=== PATIENT | female | born 2000 | race Asian ===

== ENCOUNTER → 2021-02-05 10:45 | Outpatient (CLI) | payer MEDICAID, SELFPAY ==
--- NOTE | 2021-02-05 | DI.US.S_ITS ---
PROCEDURE: US PELVIC COMPLETE INDICATIONS: BACK PAIN; HISTORY RIGHT OVARIAN CANCER AT 13YO TECHNIQUE: Real-time scanning was performed of the pelvic organs, with image documentation. Additional endovaginal scanning was necessary due to incomplete visualization of the adnexal and endometrial structures by transabdominal scanning. COMPARISON: [facility], CR, XR LUMBAR SPINE 2-3V, 02/05/2021, 11:16. FINDINGS: Uterus: Uterus is normal in size at 7 x 3.2 x 4.9 cm. The endometrium measures 4 mm in combined thickness. An IUD is seen at its expected location. Ovaries: The right ovary is surgically absent. The left ovary measures 2.7 x 1.4 x 2.2 cm. Physiologic appearing follicles can be seen involving the left ovary. No adnexal masses are seen on either side. Other: No pathologic free abdominal or pelvic fluid. IMPRESSION: Status post right oophorectomy. Physiologic appearing follicles can be seen involving the left ovary. The IUD is seen at its expected location. Dictated by: Jeffrey Carvalho M.D. on 02/05/2021 at 13:27 Approved by: Jeffrey Carvalho M.D. on 02/05/2021 at 13:29
--- NOTE | 2021-02-05 11:18 | DI.RAD.S_ITS ---
PROCEDURE: XR LUMBAR SPINE 2-3V INDICATIONS: BACK PAIN TECHNIQUE: 3 views of the lumbar spine were acquired. COMPARISON: None. FINDINGS: Bones: 5 [id number] vertebrae are present. There is normal bony alignment. No vertebral body compression fractures. No suspicious bony lesions. Soft tissues: Overlying bowel gas pattern is normal. No suspicious soft tissue calcifications. Intrauterine device projected over the mid pelvis. IMPRESSION: Normal L-spine. Dictated by: John Gonsalez RR Interpreted: Shailesh Otero MD on 02/05/2021 at 14:08 Transcribed by: INDIGO on 02/05/2021 at 14:11 Approved by: Shailesh Otero M.D. on 02/05/2021 at 15:38
== END ==
PROVIDERS: PCP Family Medicine; Referring Provider Family Medicine; Visit Provider Family Medicine
DX: Z85.43 Personal history of malignant neoplasm of ovary (principal); M54.9 Dorsalgia, unspecified; Z90.721 Acquired absence of ovaries, unilateral; Z97.5 Presence of (intrauterine) contraceptive device
CPT/HCPCS: 72100; 76830; 76856

== ENCOUNTER → 2023-12-31 06:47 | Outpatient (CLI) | payer OTHER, SELFPAY ==
--- NOTE | 2023-12-31 06:50 | DI.US.S_ITS ---
PROCEDURE: US PELVIC COMPLETE INDICATIONS: Abnormal uterine and vaginal bleeding TECHNIQUE: Real-time scanning was performed of the pelvic organs, with image documentation. Additional endovaginal scanning was necessary due to incomplete visualization of the adnexal and endometrial structures by transabdominal scanning. COMPARISON: [facility], , US PELVIC COMPLETE, 02/05/2021, 11:04. FINDINGS: Uterus: Uterus is retroverted and normal in size at 8.2 x 5.5 x 3.7 cm. The myometrium is homogeneous. The endometrium measures 4 mm combined thickness. IUD within the central uterus. Ovaries: Right oophorectomy. Left ovary measures 2.9 x 2.7 x 2.0 cm, volume of 8 mL. Avascular follicle with lacy internal contents measuring 1.8 x 1.9 x 1.3 cm. Other: No pathologic free abdominal or pelvic fluid. IMPRESSION: Right oophorectomy. Normal endometrial thickness for age. Avascular follicle with lacy internal contents measuring 1.8 x 1.9 x 1.3 cm. Findings probably represent a hemorrhagic follicle. Recommend follow-up in 6-12 weeks given history. IUD appears appropriately positioned. We strive to produce accurate, complete, and clear reports of imaging services. To assist us in improving patient care, this report was composed using standard report templates and voice recognition software. Therefore, it may contain abnormal punctuation, insertions and/or omissions. Occasional wrong-word or sound-alike substitutions may occur. Though we review the report and make efforts to correct it, we do recommend that the report be read carefully in proper context to recognize any text inaccuracies. Dictated by: Lalo Daniels M.D. on 12/31/2023 at 10:13 Approved by: Lalo Daniels M.D. on 12/31/2023 at 10:15
== END ==
PROVIDERS: PCP Family Medicine; Referring Provider Family Medicine; Visit Provider Family Medicine
DX: N93.9 Abnormal uterine and vaginal bleeding, unspecified (principal); Z30.431 Encounter for routine checking of intrauterine contraceptive device; Z90.721 Acquired absence of ovaries, unilateral
CPT/HCPCS: 76830; 76856

== ENCOUNTER → 2024-02-23 16:25 | Outpatient (ROUT) | payer OTHER, SELFPAY ==
[2024-02-23 17:35] LABS: COVID-19 CEPHEID 4-PLEX PCR POSITIVE (Negative); Influenza A - CEPHEID Flu A NEGATIVE (NEGATIVE); Influenza B - CEPHEID Flu B NEGATIVE (NEGATIVE); Respiratory Syncytial Virus Negative (Negative)
== END ==
PROVIDERS: PCP Family Medicine; Visit Provider Family Medicine
DX: R05.1 Acute cough (principal)
CPT/HCPCS: 0241U

== ENCOUNTER → 2024-03-09 14:16 | Outpatient (CLI) | payer OTHER, SELFPAY ==
--- NOTE | 2024-03-09 | DI.US.S_ITS ---
PROCEDURE: US PELVIC COMPLETE INDICATIONS: F/U HEMORRHAGIC CYST TECHNIQUE: Real-time scanning was performed of the pelvic organs, with image documentation. Additional endovaginal scanning was necessary due to incomplete visualization of the adnexal and endometrial structures by transabdominal scanning. COMPARISON: [facility], , US PELVIC COMPLETE, 12/31/2023, 7:19. FINDINGS: Uterus: Uterus is retroverted and normal in size at 6.9 x 3.0 x 5.7 cm. The myometrium is homogeneous. The endometrium measures 4 mm combined thickness. IUD within the central uterus. Ovaries: Right ovary is absent. Resolved left hemorrhagic follicle. Left ovary measures 2.6 x 4.2 x 1.5 centimeters, volume of 9 milliliter. Two simple follicles are present. Other: No pathologic free abdominal or pelvic fluid. IMPRESSION: Resolved left hemorrhagic follicle. We strive to produce accurate, complete, and clear reports of imaging services. To assist us in improving patient care, this report was composed using standard report templates and voice recognition software. Therefore, it may contain abnormal punctuation, insertions and/or omissions. Occasional wrong-word or sound-alike substitutions may occur. Though we review the report and make efforts to correct it, we do recommend that the report be read carefully in proper context to recognize any text inaccuracies. Dictated by: Lalo Daniels M.D. on 03/10/2024 at 10:46 Approved by: Lalo Daniels M.D. on 03/10/2024 at 10:48
== END ==
PROVIDERS: PCP Family Medicine; Referring Provider Family Medicine; Visit Provider Family Medicine
DX: N83.202 Unspecified ovarian cyst, left side (principal)
CPT/HCPCS: 76830; 76856